=== PATIENT | male | born 1990 | race Hispanic/Latino ===

== ENCOUNTER 2025-08-06 14:14 | Emergency (ER) | payer OTHER ==
[~2025-08-06] VITALS: Ht 182.9 cm; Wt 89.3 kg
[2025-08-06 14:48] LABS: KETONE, URINE AUTO RFX NEGATIVE (NEGATIVE); LEUKOCYTE ESTERASE UR AUTO RFX NEGATIVE (NEGATIVE); NITRITE, URINE AUTO RFX NEGATIVE (NEGATIVE); RBC, URINE AUTO RFX 0 /HPF (0-3); SQUAM EPITHELIAL CELL UR AURFX 0 /HPF (0-6); WBC, URINE AUTO RFX 0 /HPF (0-3)
[2025-08-06 16:01] LABS: HIV 1&2 SCREEN NEGATIVE (NEGATIVE)
[2025-08-06 16:15] VITALS: TEMP 97.3
[2025-08-06 16:21] LABS: Trichomonas vaginalis (AMP) NOT DETECTED (NEGATIVE)
[2025-08-06 16:44] LABS: GC DNA AMPLIFICATION NEGATIVE (NEGATIVE)
[2025-08-06 19:48] VITALS: BP 143/71; O2SAT 98
== END 2025-08-06 20:26 | disposition home or self-care (01) ==
LOC: M ED 14:14
DX: N50.811 Right testicular pain (principal)